=== PATIENT | female | born 1980 | race Caucasian/White ===

== ENCOUNTER 2017-11-19 10:29 | Emergency (ER) | payer BC ==
[2017-11-19 10:32] VITALS: RESP 20; TEMP 98; BMI 29.2
[2017-11-19 10:41] VITALS: O2SAT 98
--- NOTE | 2017-11-19 12:24 | RAD ---
PROCEDURE: Right Foot Radiographs. HISTORY: injury COMPARISON: None. FINDINGS: BONES: No fracture. Developmental variant oz navicula and prominent posterior talar process and/or nearly fused os trigonum noted JOINTS: Normal. SOFT TISSUES: Normal. OTHER FINDINGS: None. IMPRESSION: No fracture or dislocation. Developmental variants
--- NOTE | 2017-11-19 12:25 | RAD ---
PROCEDURE: Right Ankle Radiographs. HISTORY: injury COMPARISON: None FINDINGS: BONES: No fracture. Developmental variant os navicular and prominent posterior talar process and/or nearly fused os trigonum noted JOINTS: Normal. No osteoarthritis. Ankle mortise maintained. Talar dome intact SOFT TISSUES: Normal. OTHER FINDINGS: None. IMPRESSION: No fracture. Developmental variant os navicular and prominent posterior talar process and/or nearly fused os trigonum noted
--- NOTE | 2017-11-19 12:34 | ED PDOC ---
Lower Extremity Pain/Injury Time Seen by Provider: 11/19/17 11:07 Chief Complaint (Nursing): Lower Extremity Problem/Injury Chief Complaint (Provider): ankle pain History Per: Patient History/Exam Limitations: no limitations Additional Complaint(s): 37yo F in Ed for eval of ankle/foot injury sustained today after going down stairs and twisting foot. pain with bearing wght. no swelling. - Ankle/Foot Description Of Injury: Twisted Currently Unable To: Bear Weight Alleviating Factor(s): Ice Therapy Past Medical History Reviewed: Historical Data, Nursing Documentation, Vital Signs Vital Signs: Last Vital Signs Temp 98 F 11/19/17 10:31 Pulse 108 H 11/19/17 10:31 Resp 20 11/19/17 10:31 BP 151/118 H 11/19/17 10:31 Pulse Ox 98 11/19/17 10:37 - Medical History PMH: Migraine - Family History Family History: States: Unknown Family Hx - Immunization History Hx Tetanus Toxoid Vaccination: No Hx Influenza Vaccination: No Hx Pneumococcal Vaccination: No - Home Medications Home Medications: Ambulatory Orders Medication Instructions Recorded Hydromorphone Hydrochloride 4 mg PO BID PRN 12/19/12 [Dilaudid] Naproxen [Naprosyn] 1 tab PO BID PRN #25 tab 07/07/15 oxyCODONE/Acetaminophen [Percocet 1 tab PO Q8 #15 tab 07/07/15 5/325 mg Tab] oxyCODONE/Acetaminophen [Percocet 1 tab PO TID 07/07/15 5/325 mg Tab] Leg Brace [Ankle Brace] 1 each MC DAILY #1 each 11/19/17 - Allergies Allergies/Adverse Reactions: Allergies Allergy/AdvReac Type Severity Reaction Status Date / Time No Known Allergies Allergy Verified 11/19/17 10:36 Wells Criteria for PE - Wells Criteria for Pulmonary Embolism Clinical Signs and Symptoms of DVT: No P.E is #1 Diagnosis, or Equally Likely: No Heart Rate >100: No Immobilization at least 3 days;Surgery previous 4 weeks: No Previous, objectively diagnosed PE or DVT: No Hemoptysis: No Malignancy w/treatment within 6 months, or palliative: No Total Score: 0 Review of Systems ROS Statement: Except As Marked, All Systems Reviewed And Found Negative Musculoskeletal: Positive for: Foot Pain Physical Exam - Reviewed Nursing Documentation Reviewed: Yes Vital Signs Reviewed: Yes - Physical Exam Appears: Positive for: Well, Non-toxic, No Acute Distress Skin: Positive for: Normal Color, Warm, DRY Cardiovascular/Chest: Positive for: Regular Rate, Rhythm Respiratory: Positive for: CNT, Normal Breath Sounds Extremity: Positive for: Other (foot pain-no tenderness on palpation of foot FORM of ankle nontender with ROM of ankle no swelling. nuerovasc intact) Neurologic/Psych: Positive for: Alert, Oriented - ECG O2 Sat by Pulse Oximetry: 98 - Radiology X-Ray: Read By Radiologist X-Ray Interpretation: No Acute Disease Medical Decision Making Medical Decision Making: pt given motrin and will be d/c with aircast Disposition - Clinical Impression Clinical Impression: Foot pain, Ankle pain - Patient ED Disposition Is Patient to be Admitted: No Counseled Patient/Family Regarding: Need For Followup - Disposition Disposition: Routine/Home Disposition Time: 12:36 Condition: STABLE Prescriptions: Leg Brace [Ankle Brace] 1 each MC DAILY #1 each Instructions: Ankle Sprain (ED)
[2017-11-19 13:18] VITALS: BP 120/70; PULSE 74
== END 2017-11-19 13:20 | disposition home or self-care (01) ==
LOC: H.ER 10:29
DX: S99.911A Unspecified injury of right ankle, initial encounter (principal); S99.921A Unspecified injury of right foot, initial encounter; X50.9XXA Other and unspecified overexertion or strenuous movements or postures, initial encounter; Y92.89 Other specified places as the place of occurrence of the external cause